=== PATIENT | female | born 1955 | race Caucasian/White ===

== ENCOUNTER → 2017-10-04 | Outpatient (CLI) | payer OTHER | LOC: FIMAGING 14:24 | PROVIDERS: ATTEND Internal Medicine | DX: Z12.31 Encounter for screening mammogram for malignant neoplasm of breast (principal) | CPT/HCPCS: G0202 ==

== ENCOUNTER 2017-11-27 07:19 | Emergency (ER) | payer OTHER ==
[2017-11-27 07:36] VITALS: BP 130/71; PULSE 66; RESP 16; TEMP 97.5; O2SAT 100
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
== END 2017-11-27 08:19 | disposition home or self-care (01) ==
LOC: EDUNIT#
DX: S61.411A Laceration without foreign body of right hand, initial encounter (principal); S01.01XA Laceration without foreign body of scalp, initial encounter; V48.0XXA Car driver injured in noncollision transport accident in nontraffic accident, initial encounter; Y92.410 Unspecified street and highway as the place of occurrence of the external cause; Y99.8 Other external cause status; Y93.89 Activity, other specified

== ENCOUNTER → 2018-10-08 | Outpatient (CLI) | payer OTHER | LOC: FIMAGING 10:21 | PROVIDERS: ATTEND Internal Medicine | DX: Z12.31 Encounter for screening mammogram for malignant neoplasm of breast (principal) ==